=== PATIENT | female | born 1940 | race Caucasian/White ===

== ENCOUNTER 2016-11-15 07:11 | Outpatient (CLI) | payer MEDICARE ==
[2016-11-15 12:16] LABS: BASOPHILS # (AUTO) 0.1 10^3/uL (0.0-0.1); BASOPHILS % (AUTO) 1.2 %; EOSINOPHILS # (AUTO) 0.3 10^3/uL (0.0-0.7); EOSINOPHILS % (AUTO) 6.1 %; HCT - HEMATOCRIT 40.9 % (37.0-47.0); HGB - HEMOGLOBIN 13.8 g/dL (12.0-16.0); LYMPHOCYTES # (AUTO) 1.6 10^3/uL (1.5-3.5); LYMPHOCYTES % (AUTO) 37.9 %; MEAN CORPUSCULAR HGB CONC 33.9 g/dL (32.0-36.0); MEAN CORPUSCULAR VOLUME 94.3 fL (81.0-99.0); MEAN PLATELET VOLUME 8.8 fL (7.9-10.8); MONOCYTES # (AUTO) 0.4 10^3/uL (0.0-1.0); MONOCYTES % (AUTO) 8.7 %; NEUTROPHILS % (AUTO) 46.1 %; NUCLEATED RED BLOOD CELLS AUTO 0.1 /100WBC; RED BLOOD COUNT 4.33 10^6/uL (4.20-5.40); RED CELL DISTRIBUTION WIDTH 13.4 % (12.0-15.0); UNCORRECTED WHITE BLOOD COUNT 4.3 x10^3/uL; WHITE BLOOD COUNT 4.3 x10^3/uL (4.8-10.8)
[2016-11-15 12:35] LABS: ALBUMIN/GLOBULIN RATIO 1.5 (1.0-2.2); BILIRUBIN,TOTAL 0.7 mg/dL (0.2-1.0); BUN - BLOOD UREA NITROGEN 15 mg/dL (6-20); CALCIUM 9.6 mg/dL (8.5-10.3); CARBON DIOXIDE - CO2 29 mmol/L (21-32); CHLORIDE 103 mmol/L (101-111); CHOL/HDL RATIO 3.2 (<4.4); CHOLESTEROL 248 mg/dL; CREATININE 0.9 mg/dL (0.4-1.0); GFR - MDRD 61 (>89); GLUCOSE 89 mg/dL (70-100); HDL CHOLESTEROL 77 mg/dL; POTASSIUM 3.9 mmol/L (3.5-5.0); SODIUM 139 mmol/L (135-145); TOTAL PROTEIN 6.9 g/dL (6.7-8.2); TRIGLYCERIDES 88 mg/dL; VLDL CHOLESTEROL 18 mg/dL
== END 2016-11-15 07:12 | disposition home or self-care (01) ==
LOC: LAB.F 07:11
PROVIDERS: ATTEND Physician Assistant Medical
DX: Z00.00 Encounter for general adult medical examination without abnormal findings (principal); R53.83 Other fatigue; E78.5 Hyperlipidemia, unspecified; E55.9 Vitamin D deficiency, unspecified; E03.9 Hypothyroidism, unspecified
CPT/HCPCS: 36415; 80053; 80061; 82306; 84443; 85025

== ENCOUNTER 2017-11-06 07:58 | Outpatient (CLI) | payer MEDICARE ==
[2017-11-06 10:20] LABS: BASOPHILS % (AUTO) 0.9 %; EOSINOPHILS # (AUTO) 0.2 10^3/uL (0.0-0.7); EOSINOPHILS % (AUTO) 5.7 %; HGB - HEMOGLOBIN 14.3 g/dL (12.0-16.0); LYMPHOCYTES # (AUTO) 1.4 10^3/uL (1.5-3.5); LYMPHOCYTES % (AUTO) 36.1 %; MEAN CORPUSCULAR HEMOGLOBIN 32.5 pg (27.0-31.0); MEAN CORPUSCULAR VOLUME 95.7 fL (81.0-99.0); MEAN PLATELET VOLUME 9.5 fL (7.9-10.8); MONOCYTES # (AUTO) 0.4 10^3/uL (0.0-1.0); NEUTROPHILS # (AUTO) 1.8 10^3/uL (1.5-6.6); NEUTROPHILS % (AUTO) 47.3 %; PLT - PLATELET COUNT 213 10^3/uL (130-450); RED BLOOD COUNT 4.41 10^6/uL (4.20-5.40); RED CELL DISTRIBUTION WIDTH 13.6 % (12.0-15.0); WHITE BLOOD COUNT 3.9 x10^3/uL (4.8-10.8)
[2017-11-06 11:03] LABS: ALBUMIN 4.2 g/dL (3.2-5.5); ALBUMIN/GLOBULIN RATIO 1.7 (1.0-2.2); ALKALINE PHOSPHATASE 59 IU/L (42-121); ALT ALANINE AMINOTRANSFERASE 18 IU/L (10-60); AST ASPARTATE AMINOTRANSFERASE 23 IU/L (10-42); BILIRUBIN,TOTAL 0.5 mg/dL (0.2-1.0); BUN - BLOOD UREA NITROGEN 16 mg/dL (6-20); CALCIUM 9.6 mg/dL (8.5-10.3); CARBON DIOXIDE - CO2 28 mmol/L (21-32); CHLORIDE 104 mmol/L (101-111); CHOLESTEROL 242 mg/dL; CREATININE 0.7 mg/dL (0.4-1.0); GFR - MDRD 81 (>89); GLUCOSE 90 mg/dL (70-100); HDL CHOLESTEROL 82 mg/dL; LDL CHOLESTEROL,CALCULATED 151 mg/dL; LDL/HDL RATIO 1.8 (<4.4); SODIUM 141 mmol/L (135-145); TOTAL PROTEIN 6.7 g/dL (6.7-8.2); VLDL CHOLESTEROL 9 mg/dL
[2017-11-06 12:00] LABS: HB2 TOTAL 15.1 g/dL; HEMOGLOBIN A1C 0.54 g/dL; HEMOGLOBIN A1C % 5.4 % (4.6-6.2)
== END 2017-11-06 07:59 | disposition home or self-care (01) ==
LOC: LAB.F 07:58
PROVIDERS: ATTEND Physician Assistant Medical
DX: Z51.81 Encounter for therapeutic drug level monitoring (principal); E78.5 Hyperlipidemia, unspecified; R73.01 Impaired fasting glucose; E03.9 Hypothyroidism, unspecified
CPT/HCPCS: 36415; 80053; 80061; 83036; 83721; 84443; 85025

== ENCOUNTER 2017-12-22 13:30 | Outpatient (CLI) | payer MEDICARE ==
--- NOTE | 2017-12-23 08:32 | DEXA Report ---
Reason: POSTMENOPAUSAL STATUS Procedure Date: 12/22/2017 Accession Number: [id number] / [id number] Procedure: DEX - Dexa Spine and/or Hip CPT Code: FULL RESULT: EXAM: Dexa Spine and/or Hip DATE: 12/22/2017 2:00 PM CLINICAL HISTORY: POSTMENOPAUSAL STATUS TECHNIQUE: Dual energy x-ray absorptiometry (DXA) was performed on a [employer] System. Regions measured are the AP Spine, femoral neck, and if needed forearm. COMPARISON: 12/14/2015. In accordance with the International Society for Clinical Densitometry (ISCD) guidelines, data from previous exams may be reanalyzed using current recommendations and techniques. This is done to allow a more accurate basis for comparison with the current study. FINDINGS: The data for the lumbar spine is as follows: BMD (g/cm/cm) T-SCORE Z-SCORE REGION L1 0.797 -2.8 -1.2 L2 0.928 -2.3 -0.7 L3 0.952 -2.1 -0.5 L4 TOTAL 0.899 -2.3 -0.7 NOTE: All evaluable vertebrae are used for classification The data for the hip is as follows: BMD (g/cm/cm) T-SCORE Z-SCORE REGION Neck 0.879 -1.1 0.7 TOTAL 0.865 -1.1 0.5 NOTE: The femoral neck or total proximal femur, whichever is lowest, is used for classification. DXA RESULTS SUMMARY: Spine SCAN DATE AGE BMD CHANGE VS CHANGE VS PREVIOUS PREVIOUS % 12[age]22/[age] 0[age]899 -0.018 -2.0 12/14/2015 [age] 0[age]917 * Denotes significant change at the 95% confidence level. Denotes dissimilar scan types or analysis methods. DXA RESULTS SUMMARY: Hip SCAN DATE AGE BMD CHANGE VS CHANGE VS PREVIOUS PREVIOUS % 12[age]22/2017 [age] 0.865 0.010 1.2 12/14/2015 [age] 0.855 * Denotes significant change at the 95% confidence level. Denotes dissimilar scan types or analysis methods. IMPRESSION: THE WHO CLASSIFICATION BASED ON THE INTERNATIONAL REFERENCE STANDARD IS OSTEOPENIA. THE FRACTURE RISK IS INCREASED. RECOMMENDATION: Patients with diagnosis of osteoporosis or osteopenia should have regular bone mineral density assessment. For those eligible for Medicare, routine testing is allowed once every 2 years. Testing frequency can be increased for patients who have rapidly progressing disease or for those who are receiving medical therapy to restore bone mass. COMMENT: World Health Organization (WHO) definitions for osteoporosis and osteopenia: NORMAL BMD: T-score at -1.0 or higher, fracture risk is low OSTEOPENIA BMD: T-score between -1.0 and -2.5, fracture risk is increased. OSTEOPOROSIS BMD: T-score at -2.5 or lower, fracture risk is high. National Osteoporosis Foundation recommends: 1. Obtain adequate dietary calcium (at least 1200 mg per day) and vitamin D (400-800 international units per day). 2. Participate, as appropriate, in regular weightbearing and muscle-strengthening exercise. 3. Avoid tobacco use and reduce alcohol and caffeine intake. 4. For more detailed information see the website at www.NOF.org.
== END 2017-12-22 13:31 | disposition home or self-care (01) ==
LOC: DI 13:30
PROVIDERS: ATTEND Physician Assistant Medical
DX: M85.89 Other specified disorders of bone density and structure, multiple sites (principal); Z78.0 Asymptomatic menopausal state
CPT/HCPCS: 77080

== ENCOUNTER 2017-12-22 13:31 | Outpatient (CLI) | payer MEDICARE ==
--- NOTE | 2017-12-23 10:12 | Mammography Report ---
Reason: SCREENING MAMMO Procedure Date: 12/22/2017 Accession Number: [id number] / [id number] Procedure: ANGELI - Screening Mammo w/Benji CPT Code: FULL RESULT: EXAM: Screening Mammo w/Benji DATE: 12/22/2017 2:56 PM CLINICAL HISTORY: 77-year-old female with family history of breast cancer in an aunt at age 50 for screening mammogram TECHNIQUE: Bilateral CC and MLO views were obtained. COMPARISON: 12/18/2016, 12/14/2015, 10/19/2014, 10/20/2013. FINDINGS: The breasts demonstrate heterogeneously dense fibroglandular parenchyma bilaterally. Coarse typically benign bilateral breast calcifications as well as typically benign vascular calcifications are again seen. No suspicious masses, clustered microcalcifications, or regions of architectural distortion are identified. IMPRESSION: Benign findings RECOMMENDATION: Routine annual screening unless otherwise clinically indicated. BIRADS CATEGORY 2: Benign findings STANDARD QUALIFYING STATEMENTS: 1. This examination was not reviewed with the aid of Computer-Aided Detection (CAD). 2. A negative or benign imaging report should not delay biopsy if clinically suspicious findings are present. Consider surgical consultation if warrented. More than 5% of cancers are not identified by imaging. 3. Dense breasts may obscure an underlying neoplasm. 4. This examination was reviewed with the aid of 3D breast imaging (tomosynthesis).
== END 2017-12-22 13:32 | disposition home or self-care (01) ==
LOC: DI 13:31
DX: Z12.31 Encounter for screening mammogram for malignant neoplasm of breast (principal); Z80.3 Family history of malignant neoplasm of breast
CPT/HCPCS: 77063; 77067

== ENCOUNTER 2018-12-02 07:50 | Outpatient (CLI) | payer MEDICARE ==
[2018-12-02 10:22] LABS: BASOPHILS % (AUTO) 1.1 %; EOSINOPHILS # (AUTO) 0.2 10^3/uL (0.0-0.7); LYMPHOCYTES # (AUTO) 1.3 10^3/uL (1.5-3.5); MEAN CORPUSCULAR HEMOGLOBIN 31.5 pg (27.0-31.0); MEAN CORPUSCULAR HGB CONC 32.4 g/dL (32.0-36.0); MEAN CORPUSCULAR VOLUME 97.1 fL (81.0-99.0); MONOCYTES # (AUTO) 0.4 10^3/uL (0.0-1.0); MONOCYTES % (AUTO) 10.3 %; NEUTROPHILS # (AUTO) 1.8 10^3/uL (1.5-6.6); NEUTROPHILS % (AUTO) 48.3 %; PLT - PLATELET COUNT 265 10^3/uL (130-450); RED BLOOD COUNT 4.45 10^6/uL (4.20-5.40); RED CELL DISTRIBUTION WIDTH 13.7 % (12.0-15.0); WHITE BLOOD COUNT 3.8 x10^3/uL (4.8-10.8)
[2018-12-02 11:01] LABS: ALBUMIN 4.4 g/dL (3.2-5.5); ALBUMIN/GLOBULIN RATIO 1.6 (1.0-2.2); ALKALINE PHOSPHATASE 57 IU/L (42-121); ALT ALANINE AMINOTRANSFERASE 19 IU/L (10-60); AST ASPARTATE AMINOTRANSFERASE 21 IU/L (10-42); BILIRUBIN,TOTAL 0.7 mg/dL (0.2-1.0); BUN - BLOOD UREA NITROGEN 18 mg/dL (6-20); CALCIUM 9.6 mg/dL (8.5-10.3); CARBON DIOXIDE - CO2 29 mmol/L (21-32); CHLORIDE 105 mmol/L (101-111); CHOL/HDL RATIO 3.2 (<4.4); CHOLESTEROL 252 mg/dL; CREATININE 0.9 mg/dL (0.4-1.0); GFR - MDRD 61 (>89); GLUCOSE 92 mg/dL (70-100); HDL CHOLESTEROL 80 mg/dL; LDL CHOLESTEROL,CALCULATED 163 mg/dL; SODIUM 140 mmol/L (135-145); TOTAL PROTEIN 7.1 g/dL (6.7-8.2); VLDL CHOLESTEROL 9 mg/dL
[2018-12-02 11:29] LABS: HB2 TOTAL 14.4 g/dL; HEMOGLOBIN A1C 0.53 g/dL; HEMOGLOBIN A1C % 5.5 % (4.6-6.2)
== END 2018-12-02 07:51 | disposition home or self-care (01) ==
LOC: LAB.S 07:50
PROVIDERS: ATTEND Physician Assistant Medical
DX: Z51.81 Encounter for therapeutic drug level monitoring (principal); Z79.899 Other long term (current) drug therapy; E78.5 Hyperlipidemia, unspecified; R73.01 Impaired fasting glucose; E03.9 Hypothyroidism, unspecified
CPT/HCPCS: 36415; 80053; 80061; 83036; 83721; 84443; 85025

== ENCOUNTER 2019-12-08 07:11 | Outpatient (CLI) | payer MEDICARE ==
[2019-12-08 15:50] LABS: BASOPHILS % (AUTO) 0.7 %; EOSINOPHILS # (AUTO) 0.2 10^3/uL (0.0-0.7); EOSINOPHILS % (AUTO) 5.5 %; HGB - HEMOGLOBIN 13.4 g/dL (12.0-16.0); LYMPHOCYTES # (AUTO) 1.6 10^3/uL (1.5-3.5); LYMPHOCYTES % (AUTO) 40.8 %; MEAN CORPUSCULAR HEMOGLOBIN 32.4 pg (27.0-31.0); MEAN CORPUSCULAR HGB CONC 32.8 g/dL (32.0-36.0); MEAN PLATELET VOLUME 10.9 fL (7.9-10.8); MONOCYTES # (AUTO) 0.4 10^3/uL (0.0-1.0); MONOCYTES % (AUTO) 9.2 %; NEUTROPHILS # (AUTO) 1.8 10^3/uL (1.5-6.6); NEUTROPHILS % (AUTO) 43.6 %; PLT - PLATELET COUNT 236 10^3/uL (130-450); RED BLOOD COUNT 4.13 10^6/uL (4.20-5.40)
[2019-12-08 16:12] LABS: ALBUMIN 4.1 g/dL (3.2-5.5); ALBUMIN/GLOBULIN RATIO 1.5 (1.0-2.2); ALKALINE PHOSPHATASE 60 IU/L (42-121); ALT ALANINE AMINOTRANSFERASE 17 IU/L (10-60); AST ASPARTATE AMINOTRANSFERASE 16 IU/L (10-42); BILIRUBIN,TOTAL 0.5 mg/dL (0.2-1.0); BUN - BLOOD UREA NITROGEN 18 mg/dL (6-20); CALCIUM 9.7 mg/dL (8.5-10.3); CARBON DIOXIDE - CO2 28 mmol/L (21-32); CHLORIDE 104 mmol/L (101-111); CHOL/HDL RATIO 3.2 (<4.4); CHOLESTEROL 260 mg/dL; CREATININE 0.8 mg/dL (0.4-1.0); GLUCOSE 93 mg/dL (70-100); HDL CHOLESTEROL 82 mg/dL; LDL CHOLESTEROL,CALCULATED 169 mg/dL; LDL/HDL RATIO 2.1 (<4.4); SODIUM 139 mmol/L (135-145); TOTAL PROTEIN 6.8 g/dL (6.7-8.2); VLDL CHOLESTEROL 9 mg/dL
== END 2019-12-08 07:12 | disposition home or self-care (01) ==
LOC: LAB.S 07:11
PROVIDERS: ATTEND Registered Nurse
DX: E03.9 Hypothyroidism, unspecified (principal); M81.0 Age-related osteoporosis without current pathological fracture; E78.5 Hyperlipidemia, unspecified
CPT/HCPCS: 36415; 80053; 80061; 83721; 84443; 85025

== ENCOUNTER 2020-01-06 10:43 | Outpatient (CLI) | payer MEDICARE ==
--- NOTE | 2020-01-06 14:24 | DEXA Report ---
PROCEDURE: Dexa Spine and/or Hip INDICATIONS: POST MENOPAUSAL TECHNIQUE: Dual energy x-ray absorptiometry (DXA) was performed on a [employer] [place] System. Regions measur ed are the AP Spine, femoral neck, and if needed forearm. COMPARISON: 12/22/2017 FINDINGS: Lumbar Spine: Bone Mineral Density 0.907 g/cm/cm,T score -2.3, osteopenia Left Femoral Neck: Bone Mineral Density 0.831 g/cm/cm, T score -1.4, osteopenia (T score greater or equal to -1.0: NORMAL) (T score from -1.1 to -2.4: OSTEOPENIA) (T score less than or equal to -2.5 to: OSTEOPOROSIS) Impression: OSTEOPENIA. Patient is at increased risk for fracture. Patients with diagnosis of osteoporosis or osteopenia should have regular bone mineral density assess ment. For those eligible for Medicare, routine testing is allowed once every 2 years. Testing frequ ency can be increased for patients who have rapidly progressing disease or for those who are receivin g medical therapy to restore bone mass. Reviewed by: Oh Cordero MD on 01/06/2020 2:22 PM PST Approved by: Oh Cordero MD on 01/06/2020 2:22 PM PST Station ID: [id number]
== END 2020-01-06 10:44 | disposition home or self-care (01) ==
LOC: DI 10:43
PROVIDERS: ATTEND Registered Nurse
DX: M85.89 Other specified disorders of bone density and structure, multiple sites (principal); Z78.0 Asymptomatic menopausal state
CPT/HCPCS: 77080

== ENCOUNTER 2020-12-08 07:02 | Outpatient (CLI) | payer MEDICARE ==
[2020-12-08 14:26] LABS: ALBUMIN/GLOBULIN RATIO 1.4 (1.0-2.2); ALKALINE PHOSPHATASE 54 IU/L (42-121); ALT ALANINE AMINOTRANSFERASE 16 IU/L (10-60); AST ASPARTATE AMINOTRANSFERASE 16 IU/L (10-42); BILIRUBIN,TOTAL 0.6 mg/dL (0.2-1.0); BUN - BLOOD UREA NITROGEN 19 mg/dL (6-20); CALCIUM 9.6 mg/dL (8.5-10.3); CARBON DIOXIDE - CO2 30 mmol/L (21-32); CHLORIDE 103 mmol/L (101-111); CHOL/HDL RATIO 3.2 (<4.4); CHOLESTEROL 273 mg/dL; CREATININE 0.8 mg/dL (0.4-1.0); GFR - MDRD 69 (>89); GLUCOSE 95 mg/dL (70-100); HDL CHOLESTEROL 86 mg/dL; LDL CHOLESTEROL,CALCULATED 176 mg/dL; POTASSIUM 3.8 mmol/L (3.5-5.0); SODIUM 141 mmol/L (135-145); TOTAL PROTEIN 6.9 g/dL (6.7-8.2); TRIGLYCERIDES 54 mg/dL; VLDL CHOLESTEROL 11 mg/dL
[2020-12-08 14:37] LABS: THYROID STIMULATING HORMONE 3.18 uIU/mL (0.34-5.60)
[2020-12-08 15:00] LABS: EOSINOPHILS # (AUTO) 0.2 10^3/uL (0.0-0.7); EOSINOPHILS % (AUTO) 5.8 %; HCT - HEMATOCRIT 42.7 % (37.0-47.0); HGB - HEMOGLOBIN 13.5 g/dL (12.0-16.0); LYMPHOCYTES # (AUTO) 1.8 10^3/uL (1.5-3.5); LYMPHOCYTES % (AUTO) 42.2 %; MEAN CORPUSCULAR HEMOGLOBIN 31.5 pg (27.0-31.0); MEAN CORPUSCULAR HGB CONC 31.6 g/dL (32.0-36.0); MEAN CORPUSCULAR VOLUME 99.8 fL (81.0-99.0); MEAN PLATELET VOLUME 10.9 fL (7.9-10.8); MONOCYTES # (AUTO) 0.3 10^3/uL (0.0-1.0); MONOCYTES % (AUTO) 7.7 %; NEUTROPHILS # (AUTO) 1.8 10^3/uL (1.5-6.6); NEUTROPHILS % (AUTO) 43.1 %; PLT - PLATELET COUNT 240 10^3/uL (130-450); RED BLOOD COUNT 4.28 10^6/uL (4.20-5.40); RED CELL DISTRIBUTION WIDTH 14.3 % (12.0-15.0); WHITE BLOOD COUNT 4.2 x10^3/uL (4.8-10.8)
== END 2020-12-08 07:03 | disposition home or self-care (01) ==
LOC: LAB.S 07:02
PROVIDERS: ATTEND Registered Nurse
DX: E03.9 Hypothyroidism, unspecified (principal); R73.01 Impaired fasting glucose; E78.5 Hyperlipidemia, unspecified; Z13.0 Encounter for screening for diseases of the blood and blood-forming organs and certain disorders involving the immune mechanism
CPT/HCPCS: 36415; 80053; 80061; 83721; 84443; 85025

== ENCOUNTER 2021-01-16 09:47 | Outpatient (CLI) | payer MEDICARE ==
--- NOTE | 2021-01-17 14:50 | Mammography Report ---
BILATERAL DIGITAL SCREENING MAMMOGRAM 3D/2D WITH EXAGGERATED CC: 01/16/2021 CLINICAL: Family history of breast cancer. Comparison is made to exams dated: 12/29/2018 mammogram, 12/18/2016 mammogram, and 12/22/2017 mammogra m - [facility]. There are scattered fibroglandular elements in both breasts. No significant masses, calcifications, or other findings are seen in either breast. There has been no significant interval change. IMPRESSION: NEGATIVE There is no mammographic evidence of malignancy. A 1 year screening mammogram is recommended. This exam was interpreted at Station ID: [id number]. NOTE: For mammograms, a report in lay terms will be sent to the patient. Approximately 15% of breast malignancies will not be visualized mammographically. In the management of a palpable breast mass, a negative mammogram must not discourage biopsy of a clinically suspicious lesion. Electronically Signed By: Andrey Chu M.D. ar/penrad:01/16/2021 14:33:33 ACR BI-RADS Category 1: Negative 3341F PARENCHYMAL PATTERN: (A) - The breast(s) demonstrate(s) scattered fibroglandular densities. BI-RADS CATEGORY: (1) - 1 RECOMMENDATION: (ANNUAL) - Recommend routine annual screening mammography. [id number] 1 year screening LATERALITY: (B)
== END 2021-01-16 09:48 | disposition home or self-care (01) ==
LOC: DI.S 09:47
PROVIDERS: ATTEND Registered Nurse
DX: Z12.31 Encounter for screening mammogram for malignant neoplasm of breast (principal); Z80.3 Family history of malignant neoplasm of breast

== ENCOUNTER 2021-09-10 08:16 | Outpatient (CLI) | payer MEDICARE ==
[2021-09-10 15:25] LABS: T4 (THYROXINE) 5.72 ug/dL (6.09-12.23)
[2021-09-10 15:29] LABS: THYROID STIMULATING HORMONE 1.46 uIU/mL (0.34-5.60)
== END 2021-09-10 08:17 | disposition home or self-care (01) ==
LOC: LAB.S 08:16
PROVIDERS: ATTEND Registered Nurse
DX: E03.9 Hypothyroidism, unspecified (principal)
CPT/HCPCS: 36415; 84436; 84443; 84480

== ENCOUNTER 2021-09-15 08:00 | Outpatient (CLI) | payer MEDICARE ==
--- NOTE | 2021-09-15 18:06 | XRAY Report ---
PROCEDURE: Shoulder 3 View LT INDICATIONS: LEFT SHOULDER PAIN TECHNIQUE: 3 views of the shoulder were acquired. COMPARISON: None. FINDINGS: Bones: No fractures or dislocations. No suspicious bony lesions. Visualized ribs appear intact. A ge-appropriate degenerative changes are seen. Soft tissues: No suspicious soft tissue calcifications. The visualized lung demonstrates a normal a ppearance. IMPRESSION: Mild degenerative changes are seen by plain film. If it would be helpful for clinical management decision making, please consider a dedicated, schedule d shoulder MRI for further evaluation (assuming that there is no contraindication). Reviewed by: Jackson Mcnamara MD on 09/15/2021 5:05 PM TOMASZ Approved by: Jackson Mcnamara MD on 09/15/2021 5:05 PM TOMASZ Station ID: [id number]
== END 2021-09-15 23:59 | disposition home or self-care (01) ==
LOC: DI.S 08:00
PROVIDERS: ATTEND Physician Assistant Medical
DX: M19.012 Primary osteoarthritis, left shoulder (principal)

== ENCOUNTER 2021-12-10 07:20 | Outpatient (CLI) | payer MEDICARE ==
[2021-12-10 14:35] LABS: BASOPHILS # (AUTO) 0.1 10^3/uL (0.0-0.1); EOSINOPHILS # (AUTO) 0.3 10^3/uL (0.0-0.7); EOSINOPHILS % (AUTO) 6.7 %; HCT - HEMATOCRIT 44.7 % (37.0-47.0); HGB - HEMOGLOBIN 14.2 g/dL (12.0-16.0); LYMPHOCYTES # (AUTO) 2.1 10^3/uL (1.5-3.5); LYMPHOCYTES % (AUTO) 40.9 %; MEAN CORPUSCULAR HEMOGLOBIN 31.3 pg (27.0-31.0); MEAN CORPUSCULAR HGB CONC 31.8 g/dL (32.0-36.0); MEAN CORPUSCULAR VOLUME 98.7 fL (81.0-99.0); MEAN PLATELET VOLUME 11.2 fL (7.9-10.8); MONOCYTES # (AUTO) 0.5 10^3/uL (0.0-1.0); MONOCYTES % (AUTO) 9.6 %; NEUTROPHILS # (AUTO) 2.1 10^3/uL (1.5-6.6); NEUTROPHILS % (AUTO) 41.6 %; PLT - PLATELET COUNT 254 10^3/uL (130-450); RED BLOOD COUNT 4.53 10^6/uL (4.20-5.40); RED CELL DISTRIBUTION WIDTH 14.3 % (12.0-15.0); WHITE BLOOD COUNT 5.1 x10^3/uL (4.8-10.8)
[2021-12-10 15:11] LABS: ALBUMIN 4.2 g/dL (3.2-5.5); ALBUMIN/GLOBULIN RATIO 1.6 (1.0-2.2); ALKALINE PHOSPHATASE 58 IU/L (42-121); ALT ALANINE AMINOTRANSFERASE 16 IU/L (10-60); AST ASPARTATE AMINOTRANSFERASE 20 IU/L (10-42); BILIRUBIN,TOTAL 0.6 mg/dL (0.2-1.0); BUN - BLOOD UREA NITROGEN 17 mg/dL (6-20); CALCIUM 9.9 mg/dL (8.5-10.3); CARBON DIOXIDE - CO2 29 mmol/L (21-32); CHLORIDE 104 mmol/L (101-111); CHOL/HDL RATIO 3.4 (<4.4); CHOLESTEROL 267 mg/dL; CREATININE 0.9 mg/dL (0.4-1.0); GFR - MDRD 60 (>89); GLUCOSE 89 mg/dL (70-100); HDL CHOLESTEROL 79 mg/dL; LDL CHOLESTEROL,CALCULATED 176 mg/dL; LDL/HDL RATIO 2.2 (<4.4); POTASSIUM 4.4 mmol/L (3.5-5.0); SODIUM 140 mmol/L (135-145); TOTAL PROTEIN 6.9 g/dL (6.7-8.2); TRIGLYCERIDES 62 mg/dL; VLDL CHOLESTEROL 12 mg/dL
== END 2021-12-10 07:21 | disposition home or self-care (01) ==
LOC: LAB.S 07:20
PROVIDERS: ATTEND Registered Nurse
DX: E03.9 Hypothyroidism, unspecified (principal); R73.01 Impaired fasting glucose; E78.5 Hyperlipidemia, unspecified
CPT/HCPCS: 36415; 80053; 80061; 83721; 85025

== ENCOUNTER 2021-12-13 14:09 | Outpatient (CLI) | payer MEDICARE ==
[2021-12-13 20:24] LABS: T4 (THYROXINE) 5.75 ug/dL (6.09-12.23)
[2021-12-13 20:28] LABS: THYROID STIMULATING HORMONE 1.45 uIU/mL (0.34-5.60)
== END 2021-12-13 14:10 | disposition home or self-care (01) ==
LOC: LAB.S 14:09
PROVIDERS: ATTEND Registered Nurse
DX: E03.9 Hypothyroidism, unspecified (principal)
CPT/HCPCS: 36415; 84436; 84443; 84480

== ENCOUNTER 2022-01-07 10:39 | Outpatient (CLI) | payer MEDICARE ==
--- NOTE | 2022-01-07 15:42 | DEXA Report ---
PROCEDURE: Dexa Spine and/or Hip INDICATIONS: POSTMENOPAUSAL TECHNIQUE: Dual energy x-ray absorptiometry (DXA) was performed on a [employer] System. Regions measur ed are the AP Spine, femoral neck, and if needed forearm. COMPARISON: DEXA 01/06/2020 FINDINGS: Lumbar Spine: Bone Mineral Density 0.938 g/cm/cm,T score -2.0, compared to -2.3 Left Hip: Bone Mineral Density 0.823 g/cm/cm,T score -1.5, compared to -1.4 Left Femoral Neck: Bone Mineral Density 0.863 g/cm/cm, T score -1.3, unchanged (T score greater or equal to -1.0: NORMAL) (T score from -1.1 to -2.4: OSTEOPENIA) (T score less than or equal to -2.5 to: OSTEOPOROSIS) Impression: Moderate to severe osteopenia within the lumbar spine as well as mild osteopenia in the left hip. It is noted there is improved bone mineral density within the spine and mildly decreased in the hip with the femoral neck unchanged. Patients with diagnosis of osteoporosis or osteopenia should have regular bone mineral density assess ment. For those eligible for Medicare, routine testing is allowed once every 2 years. Testing frequ ency can be increased for patients who have rapidly progressing disease or for those who are receivin g medical therapy to restore bone mass. Reviewed by: Michelle Alberto MD on 01/07/2022 3:40 PM PST Approved by: Michelle Alberto MD on 01/07/2022 3:40 PM PST Station ID: [id number]
== END 2022-01-07 10:40 | disposition home or self-care (01) ==
LOC: DI 10:39
PROVIDERS: ATTEND Registered Nurse
DX: M85.89 Other specified disorders of bone density and structure, multiple sites (principal); Z78.0 Asymptomatic menopausal state

== ENCOUNTER 2022-01-07 10:41 | Outpatient (CLI) | payer MEDICARE ==
--- NOTE | 2022-01-08 12:17 | Mammography Report ---
BILATERAL DIGITAL SCREENING MAMMOGRAM 3D/2D: 01/07/2022 CLINICAL: Routine screening. Comparison is made to exams dated: 01/16/2021 mammogram, 12/29/2018 mammogram, and 12/22/2017 mammogr am - [facility]. There are scattered areas of fibroglandular density in both breasts (category b / 25%-50% glandular t issue). No significant masses, calcifications, or other findings are seen in either breast. There has been no significant interval change. IMPRESSION: NEGATIVE There is no mammographic evidence of malignancy. A 1 year screening mammogram is recommended. Based on the Tyrer Cuzick model (a risk assessment model) the patients lifetime risk is 1.6% and her 10 year risk is 0.0%. According to the ACR, ACS, and NCCN guidelines, an annual breast MRI exam heri g with mammogram is recommended if the patients lifetime risk is 20% or greater. This exam was interpreted at Station ID: [id number]. NOTE: For mammograms, a report in lay terms will be sent to the patient. Approximately 15% of breast malignancies will not be visualized mammographically. In the management of a palpable breast mass, a negative mammogram must not discourage biopsy of a clinically suspicious lesion. Electronically Signed By: Andrey rojas/angy:01/07/2022 16:37:44 ACR BI-RADS Category 1: Negative 3341F PARENCHYMAL PATTERN: (A) - The breast(s) demonstrate(s) scattered fibroglandular densities. BI-RADS CATEGORY: (1) - 1 RECOMMENDATION: (ANNUAL) - Recommend routine annual screening mammography. [id number] 1 year screening LATERALITY: (B)
== END 2022-01-07 10:42 | disposition home or self-care (01) ==
LOC: DI 10:41
PROVIDERS: ATTEND Registered Nurse
DX: Z12.31 Encounter for screening mammogram for malignant neoplasm of breast (principal)

== ENCOUNTER 2022-07-17 12:22 | Outpatient (CLI) | payer MEDICARE ==
[2022-07-17 15:07] LABS: T4 (THYROXINE) 6.87 ug/dL (6.09-12.23)
[2022-07-17 15:13] LABS: THYROID STIMULATING HORMONE 1.68 uIU/mL (0.34-5.60)
== END 2022-07-17 12:23 | disposition home or self-care (01) ==
LOC: LAB.S 12:22
PROVIDERS: ATTEND Registered Nurse
DX: E03.9 Hypothyroidism, unspecified (principal); R53.83 Other fatigue
CPT/HCPCS: 36415; 84436; 84443; 84480

== ENCOUNTER 2022-08-25 22:13 | Emergency (ER) | payer MEDICARE ==
--- NOTE | 2022-08-25 22:59 | ED Physician Documentation ---
PD HPI HEADACHE - Stated complaint Stated Complaint: GLF/HI/LAC - Chief complaint Chief Complaint: Laceration - History obtained from History obtained from: Patient - Additional information Additional information: 81-year-old woman who is up-to-date on tetanus had a trip and fall onto concrete. Has small laceration left forehead. No loss of consciousness. Only mild headache. No other injuries. PD PAST MEDICAL HISTORY - Past Medical History Endocrine/Autoimmune: HyPOthyroidism - Past Surgical History Past Surgical History: No - Present Medications Home Medications: Ambulatory Orders Medication Instructions Recorded Confirmed Levothyroxine [Synthroid] 25 mcg PO DAILY 08/25/22 08/25/22 Liothyronine [Cytomel] 5 mcg PO DAILY 08/25/22 08/25/22 - Allergies Allergies/Adverse Reactions: Allergies Allergy/AdvReac Type Severity Reaction Status Date / Time No Known Drug Allergies Allergy Verified 08/25/22 22:26 - Social History Does the pt smoke?: No Smoking Status: Never smoker Does the pt drink ETOH?: Yes Does the pt have substance abuse?: No - Immunizations Immunizations are current?: Yes PD ED PE NORMAL - Vitals Vital signs reviewed: Yes - General General: Alert and oriented X 3, No acute distress - HEENT HEENT: PERRL, EOMI, Other (Less than 1 cm laceration right forehead) - Neck Neck: No bony TTP (But will CT given age although she looks younger than stated age.) - Neuro Neuro: Alert and oriented X 3, machine specialist 2-12 intact Eye Opening: Spontaneous Motor: Obeys Commands Verbal: Oriented GCS Score: 15 - Psych Psych: Normal mood, Normal affect Results - Vitals Vitals: Vital Signs - 24 hr 08/25/22 08/25/22 22:22 22:42 Temperature 36.9 C Heart Rate 65 60 Respiratory 16 16 Rate Blood Pressure 144/62 H 152/87 H O2 Saturation 96 94 Oxygen O2 Source Room air - Rads (name of study) CTH/Cspine-NAD Relevant Findings:: Final report received, EMP independent interpretation of test Procedures - Laceration (location) Right forehead Length in cm: 0.8 Wound type: Linear, Into subcut fat Wound preparation: Irrigated copiously NS Skin layer closure: Dermabond Other: Patient tolerated well, No complications, Tetanus UTD Departure - Departure Disposition: 01 Home, Self Care Clinical Impression: Forehead laceration Qualifiers: Encounter type: initial encounter Qualified Code(s): S01.81XA - Laceration without foreign body of other part of head, initial encounter Head injury Qualifiers: Encounter type: initial encounter Qualified Code(s): S09.90XA - Unspecified injury of head, initial encounter Condition: Good Record reviewed to determine appropriate education?: Yes Instructions: ED Head Injury Closed, ED Laceration Facial Skin Glue Comments: CT scans of your head/neck were without traumatic findings. No need for concussion precaution. You can wash wound on right forehead with soap/water. Otherwise just ignore. Once glue has chipped off try to keep UV light off for the summer with good sunscreen/hat. OK to play golf with above.
--- OUTSIDE RECORDS SUMMARY | 2022-08-25 23:14 | EXTERNAL MEDICAL SUMMARY RPT | Continuity of Care Document ---
Author Name Unknown Address [address] [place] [address] Phone Organization [facility] Address [address] [place] [address] Phone Care Team Providers Care Driver Medic Name Role Phone Unavailable Unavailable Unavailable Luz Barrera Unavailable Unavailable Medications date description facility 2022-07-12 00:00 [facility] [place] 2022-07-17 00:00 [facility] [place] 2022-07-12 00:00 B COMPLEX VITAMINS [facility] [place] 2022-07-17 00:00 B COMPLEX VITAMINS [facility] [place] 2022-07-12 00:00 [facility]LECALCIFEROL [facility] [place] 2022-07-17 00:00 CHOLECALCIFEROL [facility] [place] 2022-07-12 00:00 MULTIPLE VITAMIN [facility] [place] 2022-07-17 00:00 MULTIPLE VITAMIN [facility] [place] 2022-07-12 00:00 FOLIC ACID [facility] [place] 2022-07-17 00:00 FOLIC ACID [facility] [place] 2022-07-12 00:00 METHYLSULFONYLMETHANE [facility] [place] 2022-07-17 00:00 METHYLSULFONYLMETHANE [facility] [place] 2022-07-12 00:00 CHOLECALCIFEROL [facility] [place] 2022-07-17 00:00 CHOLECALCIFEROL [facility] [place] 2022-07-12 00:00 MULTIPLE VITAMIN [facility] [place] 2022-07-17 00:00 MULTIPLE VITAMIN [facility] [place] 2022-07-12 00:00 vitamin e (dl, acetate) [facility] [place] 2022-07-17 00:00 vitamin e (dl, acetate) [facility] [place] 2022-07-12 00:00 cyanocobalamin (vitamin b-12) [facility] [place] 2022-07-17 00:00 cyanocobalamin (vitamin b-12) [facility] [place] 2022-07-12 00:00 [facility]OLOL [facility] [place] 2022-07-17 00:00 [facility] [place] 2022-07-12 00:00 [facility] [place] 2022-07-17 00:00 [facility] [place] 2022-07-12 00:00 B COMPLEX VITAMINS [facility] [place] 2022-07-17 00:00 B COMPLEX VITAMINS [facility] [place] 2022-07-12 00:00 ascorbic acid (vitamin c) [facility] [place] 2022-07-17 00:00 ascorbic acid (vitamin c) [facility] [place] 2022-07-12 00:00 cyanocobalamin (vitamin b-12) [facility] [place] 2022-07-17 00:00 cyanocobalamin (vitamin b-12) [facility] [place] 2022-07-12 00:00 ascorbic acid (vitamin c) [facility] [place] 2022-07-17 00:00 ascorbic acid (vitamin c) [facility] [place] 2022-07-12 00:00 FOLIC ACID [facility] [place] 2022-07-17 00:00 FOLIC ACID [facility] [place] 2022-07-12 00:00 cyanocobalamin (vitamin b-12) [facility] [place] 2022-07-17 00:00 cyanocobalamin (vitamin b-12) [facility] [place] 2022-07-12 00:00 [facility]OL [facility] [place] 2022-07-17 00:00 [facility]OL [facility] [place] 2022-07-12 00:00 METHYLSULFONYLMETHANE [facility] [place] 2022-07-17 00:00 METHYLSULFONYLMETHANE [facility] [place] 2022-07-12 00:00 ascorbic acid (vitamin c) [facility] [place] 2022-07-17 00:00 ascorbic acid (vitamin c) [facility] [place] 2022-07-12 00:00 CHOLECALCIFEROL [facility] [place] 2022-07-17 00:00 CHOLECALCIFEROL [facility] [place] 2022-07-12 00:00 vitamin e (dl, acetate) [facility] [place] 2022-07-17 00:00 vitamin e (dl, acetate) [facility] [place] 2022-07-12 00:00 B COMPLEX VITAMINS [facility] [place] 2022-07-17 00:00 B COMPLEX VITAMINS [facility] [place] 2022-07-12 00:00 MULTIPLE VITAMIN [facility] [place] 2022-07-17 00:00 MULTIPLE VITAMIN [facility] [place] 2022-07-12 00:00 ascorbic acid (vitamin c) [facility] [place] 2022-07-17 00:00 ascorbic acid (vitamin c) [facility] [place] 2022-07-12 00:00 CHOLECALCIFEROL [facility] [place] 2022-07-17 00:00 CHOLECALCIFEROL [facility] [place] 2022-07-12 00:00 vitamin e (dl, acetate) [facility] [place] 2022-07-17 00:00 vitamin e (dl, acetate) [facility] [place] 2022-07-12 00:00 cyanocobalamin (vitamin b-12) [facility] [place] 2022-07-17 00:00 cyanocobalamin (vitamin b-12) [facility] [place] 2022-07-12 00:00 FOLIC ACID [facility] [place] 2022-07-17 00:00 FOLIC ACID [facility] [place] 2022-07-12 00:[address] F[address] [facility]-In [facility] [place] 2022-07-17 00:[address] Walk-In [facility] [place] 2022-07-12 00:00 METHYLSULFONYLMETHANE [facility] [place] 2022-07-17 00:00 METHYLSULFONYLMETHANE [facility] [place] Problems date description facility 2022-07-11 00:00 Other malaise and fatigue Walk- In [facility] [place] 2022-07-11 00:[address] [facility] [place] 2022-07-11 00:00 Other fatigue [facility]-In [facility] [place] 2022-07-12 00:00 Plantar fasciitis [facility] [place] 2022-07-12 00:[address] [facility] [place] 2022-07-12 00:00 Osteoarthritis [facility] [place] 2022-07-12 00:00 Osteoarthrosis, unsp ecified whether generalized or localized, involving unspecified site Walk-In [facility] [place] 2022-07-12 00:00 Disorder of bone and cartilage, unspecified [facility]-In [facility] [place] 2022-07-12 00:00 Other malaise and fatigue Walk- In [facility] [place] 2022-07-12 00:00 Fatigue [facility] [place] 2022-07-12 00:00 Unspecified osteoart hritis, unspecified site [facility] [place] 2022-07-12 00:00 Plantar fascial fibromatosis [facility] [place] 2022-07-12 00:00 Other specified diso rders of bone density and structure, unspecified site [facility] [place] 2022-07-12 00:00 Headache [facility] [place] 2022-07-12 00:00 Other fatigue [facility] [place] 2022-07-17 00:00 Plantar fasciitis [facility] [place] 2022-07-17 00:[address] [facility] [place] 2022-07-17 00:00 Osteoarthritis [facility] [place] 2022-07-17 00:00 Osteoarthrosis, unsp ecified whether generalized or localized, involving unspecified site [facility] [place] 2022-07-17 00:00 Disorder of bone and cartilage, unspecified [facility] [place] 2022-07-17 00:00 Other malaise and fatigue [facility] [place] 2022-07-17 00:00 Fatigue [facility] [place] 2022-07-17 00:00 Unspecified osteoart hritis, unspecified site [facility] [place] 2022-07-17 00:00 Plantar fascial fibromatosis [facility] [place] 2022-07-17 00:00 Other specified diso rders of bone density and structure, unspecified site [facility] [place] 2022-07-17 00:00 Headache [facility] [place] 2022-07-17 00:00 Other fatigue [facility] [place] Results/Labs test date author facility value unit interpretation Result panel 1 (unknown) (no date) (unknown) [facility] [place] (no value) (units unknown) (unknown) Result panel 2 (unknown) (no date) (unknown) [facility] [place] (no value) (units unknown) (unknown) Result panel 3 (unknown) (no date) (unknown) [facility] [place] (no value) (units unknown) (unknown) Result panel 4 (unknown) (no date) (unknown) [facility] [place] (no value) (units unknown) (unknown) Result panel 5 (unknown) (no date) (unknown) [facility] [place] (no value) (units unknown) (unknown)
--- NOTE | 2022-08-25 23:55 | CT Report ---
PROCEDURE: HEAD WO INDICATIONS: head inj TECHNIQUE: Noncontrast 4.5 mm thick angled axial sections acquired from the foramen magnum to the vertex. For r adiation dose reduction, the following was used: automated exposure control, adjustment of mA and/or kV according to patient size. COMPARISON: None. FINDINGS: Image quality: Excellent. CSF spaces: There is mild cerebral volume loss with prominence of the ventricles and sulci. Basal ci sterns are patent. No extra-axial fluid collections. Brain: No intracranial hemorrhage, mass, or mass effect. Callaway-white matter interface is preserved. T here are subcortical and periventricular white matter hypodensities consistent with mild chronic smal l vessel ischemic changes. Skull and face: Calvarium and visualized facial bones are intact, without suspicious lesions. Sinuses: Visualized sinuses and mastoids are clear. IMPRESSION: 1. No acute intracranial abnormality. Reviewed by: Davis Glez MD on 08/25/2022 11:53 PM PDT Approved by: Davis Glez MD on 08/25/2022 11:53 PM PDT Station ID: [id number]
--- NOTE | 2022-08-25 23:56 | CT Report ---
PROCEDURE: CERVICAL SPINE WO INDICATIONS: head inj TECHNIQUE: Noncontrast 3 mm thick sections acquired from the skull base to the T4 level. Sagittal and coronal r eformats were then constructed. For radiation dose reduction, the following was used: automated exp osure control, adjustment of mA and/or kV according to patient size. COMPARISON: None. FINDINGS: Image quality: Excellent. Bones: No fractures or subluxation. There is straightening of the cervical lordosis. Multilevel dege nerative disc disease and facet arthropathy demonstrated throughout the cervical spine. Visualized seals perior ribs are intact. Soft tissues: Prevertebral soft tissues are normal in thickness. No paravertebral hematomas. No ap ical pneumothoraces. IMPRESSION: 1. No acute fracture or subluxation. Reviewed by: Davis Glez MD on 08/25/2022 11:55 PM PDT Approved by: Davis Glez MD on 08/25/2022 11:55 PM PDT Station ID: [id number]
[2022-08-26 00:19] VITALS: BP 137/76
== END 2022-08-26 00:11 | disposition home or self-care (01) ==
LOC: ED 22:13
DX: S09.90XA Unspecified injury of head, initial encounter (principal); S01.81XA Laceration without foreign body of other part of head, initial encounter; W01.0XXA Fall on same level from slipping, tripping and stumbling without subsequent striking against object, initial encounter; E03.9 Hypothyroidism, unspecified; Z79.899 Other long term (current) drug therapy
CPT/HCPCS: 12011; 99283; 99284

== ENCOUNTER 2022-12-10 07:06 | Outpatient (CLI) | payer MEDICARE ==
[2022-12-10 14:36] LABS: BASOPHILS % (AUTO) 0.9 %; EOSINOPHILS # (AUTO) 0.3 10^3/uL (0.0-0.7); HCT - HEMATOCRIT 41.1 % (37.0-47.0); HGB - HEMOGLOBIN 13.3 g/dL (12.0-16.0); LYMPHOCYTES # (AUTO) 2.1 10^3/uL (1.5-3.5); LYMPHOCYTES % (AUTO) 45.8 %; MEAN CORPUSCULAR HEMOGLOBIN 31.5 pg (27.0-31.0); MEAN CORPUSCULAR HGB CONC 32.4 g/dL (32.0-36.0); MEAN CORPUSCULAR VOLUME 97.4 fL (81.0-99.0); MEAN PLATELET VOLUME 10.7 fL (7.9-10.8); MONOCYTES # (AUTO) 0.4 10^3/uL (0.0-1.0); MONOCYTES % (AUTO) 9.1 %; NEUTROPHILS # (AUTO) 1.7 10^3/uL (1.5-6.6); PLT - PLATELET COUNT 263 10^3/uL (130-450); RED BLOOD COUNT 4.22 10^6/uL (4.20-5.40); RED CELL DISTRIBUTION WIDTH 14.5 % (12.0-15.0); WHITE BLOOD COUNT 4.5 x10^3/uL (4.8-10.8)
[2022-12-10 15:25] LABS: ALBUMIN 4.1 g/dL (3.2-5.5); ALBUMIN/GLOBULIN RATIO 1.6 (1.0-2.2); BILIRUBIN,TOTAL 0.4 mg/dL (0.2-1.0); CALCIUM 9.9 mg/dL (8.5-10.3); CREATININE 0.8 mg/dL (0.6-1.3); POTASSIUM 4.2 mmol/L (3.5-4.5); TOTAL PROTEIN 6.6 g/dL (6.4-8.9)
[2022-12-10 15:34] LABS: THYROID STIMULATING HORMONE 5.15 uIU/mL (0.34-5.60)
== END 2022-12-10 07:07 | disposition home or self-care (01) ==
LOC: LAB.S 07:06
PROVIDERS: ATTEND Registered Nurse
DX: E03.9 Hypothyroidism, unspecified (principal); Z79.899 Other long term (current) drug therapy
CPT/HCPCS: 36415; 80053; 84436; 84443; 84480; 85025